=== PATIENT | female | born 1970 | race Caucasian/White ===

== ENCOUNTER 2021-03-30 15:06 | Emergency (ER) | payer BC, SELFPAY ==
--- NOTE | ~2021-03-30 | XR_ITS ---
EXAMINATION: XR chest 2V DATE: 03/30/2021 16:24 INDICATION: Shortness of breath. TECHNIQUE: Frontal and lateral views of the chest were obtained. COMPARISON: None. FINDINGS: The chest demonstrates clear lungs without pneumonia, pleural effusion, or pneumothorax. Th e heart size is normal. There are surgical clips in left breast. IMPRESSION: 1. No acute cardiopulmonary disease. Reviewed, dictated and finalized at location A.
[2021-03-30 15:03] VITALS: BP 155/73; PULSE 81; RESP 22; TEMP 36.4; O2SAT 100
--- NOTE | 2021-03-30 15:11 | ECG_ITS ---
Measurements Intervals [place] Rate: 75 P: 6 MD: 156 QRS: 14 QRSD: 100 T: 4 QT: 403 QTc: 452 Interpretive Statements SINUS RHYTHM BORDERLINE ST-T WAVE ABNORMALITY- INFERIOR LEADS BORDERLINE ECG Electronically Signed On 03-30-2021 17:15:10 CDT by Mitul Aguirre D.O.
[2021-03-30 16:01] VITALS: BP 132/62; PULSE 80; RESP 15; O2SAT 100
--- NOTE | 2021-03-30 16:14 | ED.GENADULT ---
HPI - General Adult General Chief complaint: Allergic Reaction Stated complaint: STUNG BY YELLOW JACKETS Time Seen by Provider: 03/30/21 15:59 Source: patient History of Present Illness HPI narrative: Patient is a 50 y/o female complaining of chest pain and SOB after being stung by multiple yellow jackets about 2 hours ago. She states that she was mowing the grass and there was a nest on the ground. She states that her pain was located in mid sternal area and she rate it as 7/10. There is no pain radiation. She took Benadryl, which did not help. EMS was called and she was given IM Epi by EMS. She feel better currently. She still has slight chest pain which she rates as 1/10. Related Data Allergies Allergy/AdvReac Type Severity Reaction Status Date / Time No Known Allergies Allergy Verified 03/30/21 17:29 Review of Systems Constitutional: Constitutional: Denies chills, Denies fever(s), Denies headache(s) and Denies weakness Eyes: Eyes: Denies blurry vision ENT: Denies headache(s) and Denies neck pain Cardiovascular: Cardiovascular: Reports chest pain and Reports dyspnea Respiratory: Respiratory: Denies cough and Reports dyspnea Gastrointestinal: Gastrointestinal: Denies abdominal pain, Denies diarrhea, Denies nausea and Denies vomiting Genitourinary: Genitourinary: Denies hematuria and Denies dysuria Musculoskeletal: Musculoskeletal: Denies back pain and Denies neck pain Neurologic: Denies headache(s) and Denies weakness Exam Const: General: no acute distress and well developed Orientation/consciousness: oriented to person, oriented to place, oriented to time and patient oriented x3 HENMT: Head: normocephalic Ears: external ears normal General nose exam: Normal external nose present Eyes: General: appearance normal, both eyes and all related structures Conjunctivae: conjunctivae normal Neck: Neck: normal visual inspection and full ROM Chest: Chest palpation & inspection: normal inspection of the chest and no tenderness Resp: Effort & Inspection: normal respiratory effort Auscultation: clear to auscultation bilaterally Cardio: Rate: regular rate Rhythm: regular rhythm GI: GI Palp: No abdominal tenderness and Yes Soft to palpation Skin: General skin exam: normal color, turgor normal and erythema (some area of redness on arms and trunk.) Neuro: General: oriented to person, oriented to place, oriented to time and patient oriented x3 Cognition (Neuro): normal cognition Extrem: General: normal to inspection, full ROM and no pedal edema Psych: Appearance: grossly normal Mental Status: mental status grossly normal Affect: normal affect Course Vital Signs Vital signs: Vital Signs Temperature 36.4 C 03/30/21 15:03 Pulse Rate 81 03/30/21 15:03 Respiratory Rate 22 H 03/30/21 15:03 Blood Pressure 155/73 H 03/30/21 15:03 Pulse Oximetry 100 03/30/21 15:03 Temperature 36.4 C 03/30/21 15:03 Pulse Rate 80 03/30/21 20:47 Respiratory Rate 14 03/30/21 20:47 Blood Pressure 156/82 H 03/30/21 20:47 Pulse Oximetry 98 03/30/21 20:47 Medical Decision Making Vital Signs Vital Signs: Vital Signs Temperature 36.4 C 03/30/21 15:03 Pulse Rate 81 03/30/21 15:03 Respiratory Rate 22 H 03/30/21 15:03 Blood Pressure 155/73 H 03/30/21 15:03 Pulse Oximetry 100 03/30/21 15:03 Temperature 36.4 C 03/30/21 15:03 Pulse Rate 80 03/30/21 20:47 Respiratory Rate 14 03/30/21 20:47 Blood Pressure 156/82 H 03/30/21 20:47 Pulse Oximetry 98 03/30/21 20:47 Lab Data Result diagrams: 03/30/21 16:35 03/30/21 16:35 Labs: Lab Results 03/30/21 03/30/21 03/30/21 Range/Units 16:35 16:35 19:19 WBC 11.7 H (4.5-10.0) K/mm3 RBC 4.46 (4.2-5.4) M/mm3 Hgb 11.5 L (12.0-15.0) g/dL Hct 37.0 (37.0-47.0) % MCV 83.0 (80-100) fl MCH 25.8 L (26-34) pg MCHC 31.1 L (32-36) g/dl RDW 15.2 H (11.5-14.5) % Plt C
[2021-03-30 17:01] VITALS: BP 142/81; PULSE 71; RESP 16; O2SAT 100
[2021-03-30 17:03] LABS: Basophils Percent Auto 0.2 % (0.2-1.2); Eosinophils Percent Auto 0.3 % (0-4.4); Hemoglobin 11.5 g/dL (12.0-15.0); Immature Granulocyte Absolute 0.05 K/mm3 (0.00-0.031); Immature Granulocyte Percent A 0.4 % (0-0.5); Lymphocytes Absolute Auto 0.88 K/mm3 (0.9-3.2); Lymphocytes Percent Auto 7.5 % (18.3-44.2); Mean Corpuscular HGB Conc 31.1 g/dl (32-36); Mean Corpuscular Hemoglobin 25.8 pg (26-34); Mean Platelet Volume 9.9 fl (7.4-10.4); Monocytes Absolute Auto 0.8 K/mm3 (0.1-0.6); Monocytes Percent Auto 6.9 % (2.6-8.5); Neutrophils Absolute Auto 9.9 K/mm3 (1.3-6.7); Neutrophils Percent Auto 84.7 % (45.5-73.1); Platelet Count Result 214 k/mm3 (150-375); Red Blood Count 4.46 M/mm3 (4.2-5.4); Red Cell Distribution Width 15.2 % (11.5-14.5); White Blood Count 11.7 K/mm3 (4.5-10.0)
[2021-03-30 17:09] LABS: Alanine Aminotransferase 20 U/L (4-35); Albumin Level 4.2 g/dL (3.5-5.1); Alkaline Phosphatase 59 U/L (38-126); Anion Gap 8 mmol/L (8-16); Aspartate Amino Transferase 24 U/L (14-36); Bilirubin,Total 0.4 mg/dL (0.2-1.3); Blood Urea Nitrogen 23 mg/dL (7-17); Calcium 8.7 mg/dL (8.4-10.2); Carbon Dioxide 22 mmol/L (22-30); Chloride 105 mmol/L (98-107); Estimated CRCL calculation 96 ml/min; Estimated Glomerular Filt Rate > 60; Glucose 130 mg/dL (65-110); Potassium 3.3 mmol/L (3.4-5.0); Sodium 135 mmol/L (137-145)
[2021-03-30 17:21] LABS: Troponin I < 0.012 ng/mL (0.000-0.034)
[2021-03-30] MEDS: POTASSIUM CHLORIDE 20 MEQ TABLET PO (17:37)
[2021-03-30 18:01] VITALS: BP 137/85; PULSE 74; RESP 14; O2SAT 100
[2021-03-30] MEDS: methylPREDNISolone SOD SUCC 125 MG VIAL IV PUSH (19:09)
[2021-03-30] MEDS: FAMOTIDINE 20 MG/2 ML VIAL IV PUSH (19:09)
[2021-03-30 19:31] VITALS: BP 123/64; PULSE 79; RESP 12; O2SAT 100
[2021-03-30 19:51] LABS: Troponin I < 0.012 ng/mL (0.000-0.034)
--- NOTE | 2021-03-30 20:03 | ED.GENADULT ---
HPI - General Adult General Chief complaint: Allergic Reaction Stated complaint: STUNG BY YELLOW JACKETS Time Seen by Provider: 03/30/21 15:59 Source: patient Related Data Home Medications Medication Instructions Recorded Confirmed No Home Medications 03/30/21 03/30/21 Allergies Allergy/AdvReac Type Severity Reaction Status Date / Time No Known Allergies Allergy Verified 03/30/21 17:29 Course Vital Signs Vital signs: Vital Signs Temperature 97.6 F 03/30/21 15:03 Pulse Rate 81 03/30/21 15:03 Respiratory Rate 22 H 03/30/21 15:03 Blood Pressure 155/73 H 03/30/21 15:03 Pulse Oximetry 100 03/30/21 15:03 Temperature 97.6 F 03/30/21 15:03 Pulse Rate 79 03/30/21 19:31 Respiratory Rate 12 03/30/21 19:31 Blood Pressure 123/64 03/30/21 19:31 Pulse Oximetry 100 03/30/21 19:31 Medical Decision Making Vital Signs Vital Signs: Vital Signs Temperature 97.6 F 03/30/21 15:03 Pulse Rate 81 03/30/21 15:03 Respiratory Rate 22 H 03/30/21 15:03 Blood Pressure 155/73 H 03/30/21 15:03 Pulse Oximetry 100 03/30/21 15:03 Temperature 97.6 F 03/30/21 15:03 Pulse Rate 79 03/30/21 19:31 Respiratory Rate 12 03/30/21 19:31 Blood Pressure 123/64 03/30/21 19:31 Pulse Oximetry 100 03/30/21 19:31 Lab Data Result diagrams: 03/30/21 16:35 03/30/21 16:35 Labs: Lab Results 03/30/21 03/30/21 03/30/21 Range/Units 16:35 16:35 19:19 WBC 11.7 H (4.5-10.0) K/mm3 RBC 4.46 (4.2-5.4) M/mm3 Hgb 11.5 L (12.0-15.0) g/dL Hct 37.0 (37.0-47.0) % MCV 83.0 (80-100) fl MCH 25.8 L (26-34) pg MCHC 31.1 L (32-36) g/dl RDW 15.2 H (11.5-14.5) % Plt Count 214 (150-375) k/mm3 MPV 9.9 (7.4-10.4) fl Immature Gran % (Auto) 0.4 (0-0.5) % Neut % (Auto) 84.7 H (45.5-73.1) % Lymph % (Auto) 7.5 L (18.3-44.2) % [place] % (Auto) 6.9 (2.6-8.5) % Eos % (Auto) 0.3 (0-4.4) % Baso % (Auto) 0.2 (0.2-1.2) % Lymph # (Auto) 0.88 L (0.9-3.2) K/mm3 [place] # (Auto) 0.8 H (0.1-0.6) K/mm3 Eos # (Auto) 0.0 (0-0.3) K/mm3 Baso # (Auto) 0.0 (0.0-0.1) K/mm3 Abs Immat Gran (auto) 0.05 H (0.00-0.031) K/mm3 Absolute Neuts (auto) 9.9 H (1.3-6.7) K/mm3 Absolute Nucleated RBC 0.0 (0.0-0.012) K/mm3 Nucleated RBC % 0.0 (0.0-0.2) % Sodium 135 L (137-145) mmol/L Potassium 3.3 L (3.4-5.0) mmol/L Chloride 105 (98-107) mmol/L Carbon Dioxide 22 (22-30) mmol/L Anion Gap 8 (8-16) mmol/L BUN 23 H (7-17) mg/dL Creatinine 0.70 (0.7-1.0) mg/dL Estim Creat Clear Calc 96 ml/min Estimated GFR > 60 (59 - ) Glucose 130 H (65-110) mg/dL Calcium 8.7 (8.4-10.2) mg/dL Total Bilirubin 0.4 (0.2-1.3) mg/dL AST 24 (14-36) U/L ALT 20 (4-35) U/L Alkaline Phosphatase 59 (38-126) U/L Troponin I < 0.012 < 0.012 (0.000-0.034) ng/mL Total Protein 7.0 (6.3-8.2) g/dL Albumin 4.2 (3.5-5.1) g/dL Discharge Plan Discharge Clinical Impression: Bee sting reaction Qualifiers: Encounter type: initial encounter Injury intent: accidental or unintentional Qualified Code(s): T63.441A - Toxic effect of venom of bees, accidental (unintentional), initial encounter Chest pain Qualifiers: Chest pain type: unspecified Qualified Code(s): R07.9 - Chest pain, unspecified Patient Disposition: Home, Self-Care Condition: Stable Instructions: Chest Pain (ED), Insect Bite or Sting (ED) Prescriptions: No Action No Home Medications RF: 0 Follow-up/Referrals: UNKNOWN,DOCTOR [Primary Care Provider] -
[2021-03-30 20:47] VITALS: BP 156/82; PULSE 80; RESP 14; O2SAT 98
== END 2021-03-30 20:50 | disposition home or self-care (01) ==
PROVIDERS: Emergency Provider Emergency Medicine
DX: T63.441A Toxic effect of venom of bees, accidental (unintentional), initial encounter (principal); R07.9 Chest pain, unspecified
CPT/HCPCS: 36415; 71046; 80053; 84484; 85025; 93005; 96374; 96375; 99284; A9270; J2930

== ENCOUNTER 2022-01-08 04:32 | Day surgery (SDC) | payer BC, SELFPAY ==
[2021-11-09 15:42] VITALS: BMI 32.8
[2021-12-22 13:38] VITALS: BMI 32.8
--- NOTE | 2021-12-22 13:42 | PC.NURSE ---
PAT call complete. Pt states no changes since last PAT call done on 11-09-21. Questions answered.
[2022-01-08 08:18] VITALS: BP 165/96; PULSE 80; RESP 20; TEMP 37.1; O2SAT 100
[2022-01-08] MEDS: LACTATED RINGERS 1,000 ML 150 ML IV CONT (08:29)
--- NOTE | 2022-01-08 08:38 | WPDANESEPPF ---
Anes - Initial Pre Proc Eval Procedure: Operation Date: 01/08/22 09:30 Proposed Procedures p Screening Colonoscopy - Hubert Dick MD Date/Time: 01/08/22 08:38 Surgeon: Hubert Dick MD Pre Op Diagnosis: neoplasm screening Patient Data Age: 51 Gender: F Height: 1.6 m Weight: 95 kg Last Vital Signs Temp 37.1 C 01/08/22 08:18 Pulse 80 01/08/22 08:18 Resp 20 01/08/22 08:18 BP 165/96 H 01/08/22 08:18 Pulse Ox 100 01/08/22 08:18 O2 Del Method Room Air 01/08/22 08:18 Allergies Allergy/AdvReac Type Severity Reaction Status Date / Time No Known Allergies Allergy Verified 01/08/22 08:17 Home Medications Medication Instructions Recorded Confirmed Type furosemide 20 mg tablet 20 mg PO DAILY PRN Edema 11/09/21 12/22/21 History ibuprofen 200 mg tablet (Advil) 200 mg PO Q6H PRN Pain 11/09/21 12/22/21 History latanoprost 0.005 % eye drops 1 drp EACH EYE DAILY 11/09/21 12/22/21 History ferrous sulfate 325 mg (65 mg 325 mg PO DAILY 12/17/21 12/22/21 History iron) tablet Patient hx anesthesia problems: none Family hx anesthesia problems: none Results Review: All pre-operative results and documents have been reviewed as part of the pre-operative evaluation. [facility] Past Medical History Medical History (Updated 12/17/21 @ 10:26 by Bryce Hitchcock MD) Breast cancer History of hypertension Surgical History Surgical History (Updated 12/17/21 @ 09:44 by ANDREW Ramirez) Delivery by section 01/08/1985 / 04/18/1987 H/O tubal ligation (~07/25/11) History of lumpectomy of left breast (09/04/11) invasive ductal carcinoma S/P lumpectomy, right breast x 2 Family History Family History (Updated 12/17/21 @ 09:42 by ANDREW Ramirez) Mother Heart disease Multiple myeloma Father Bladder cancer Diabetes mellitus Social History Social History (Updated 12/17/21 @ 09:43 by ANDREW Ramirez) Smoking status: Former smoker Tobacco type: cigarettes Alcohol intake: current Drinks per week: 3 Substance use: never Substance use type: does not use Living arrangements: with family Additional living arrangements comments: 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: 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[employer]) Gender identity (if verbalized by the patient): Female Sexual Orientation (if Verbalized by the Patient): Straight or Heterosexual Spiritual care concerns: No Anes - Eval Final PreProcedure Day of Procedure 01/08/22 08:38 Patient weight: obese Heart: regular rate and rhythm Lungs: clear to auscultation and normal air movement Airway: Mallampati scale class II Neurological: alert and oriented Last oral intake: >/= 8 hours ASA classification: III Emergent: no Anesthetic plan: proceed Anesthesia type and monitoring: general GIVS Results Review: All pre-operative results and documents have been reviewed as part of the pre-operative evaluation. Informed Consent: The patient's anesthetic plan and its attendant risks and benefits were discussed with the patient/family/POA. Questions were solicited and answers provided to the satisfaction of the patient/family/POA.
--- NOTE | 2022-01-08 09:21 | PM.HPGS ---
History of Present Illness History of Present Illness Consent: Risks, benefits, and alternatives have been discussed and questions answered. Patient agrees to proceed with procedure. Chief complaint: neoplasm screening Narrative: Charo Mccord is a 51 year old female Referred for colon cancer screening. This is her 1st colonoscopy. Review of Systems Review of Systems: All systems reviewed & are unremarkable except as noted in HPI and below PMFSH Past Medical History Medical History Breast cancer History of hypertension Surgical History Surgical History Delivery by section 01/08/1985 / 04/18/1987 H/O tubal ligation (~07/25/11) History of lumpectomy of left breast (09/04/11) invasive ductal carcinoma S/P lumpectomy, right breast x 2 Family History Family History Mother Heart disease Multiple myeloma Father Bladder cancer Diabetes mellitus Social History Social History Smoking status: Former smoker Tobacco type: cigarettes Alcohol intake: current Drinks per week: 3 Substance use: never Substance use type: does not use Living arrangements: with family Additional living arrangements comments: 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: 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[employer]) Gender identity (if verbalized by the patient): Female Sexual Orientation (if Verbalized by the Patient): Straight or Heterosexual Spiritual care concerns: No Meds Home Medications and Allergies Home Medications Medication Instructions Recorded Confirmed Type furosemide 20 mg tablet 20 mg PO DAILY PRN Edema 11/09/21 12/22/21 History ibuprofen 200 mg tablet (Advil) 200 mg PO Q6H PRN Pain 11/09/21 12/22/21 History latanoprost 0.005 % eye drops 1 drp EACH EYE DAILY 11/09/21 12/22/21 History ferrous sulfate 325 mg (65 mg 325 mg PO DAILY 12/17/21 12/22/21 History iron) tablet Allergies Allergy/AdvReac Type Severity Reaction Status Date / Time No Known Allergies Allergy Verified 01/08/22 08:17 Vital Signs Vital Signs - 24 hr 01/08/22 08:18 Temperature 37.1 C Pulse Rate 80 Respiratory Rate 20 Blood Pressure 165/96 H Pulse Oximetry 100 Oxygen Delivery Room Air Exam Resp: Auscultation: clear to auscultation bilaterally Cardio: Rate: regular rate Rhythm: regular rhythm GI: GI Palp: Yes Soft to palpation and No Tenderness to palpation present (GI) Assessment and Plan Assessment and plan (1) Colon cancer screening: Code(s): Z12.11 - Encounter for screening for malignant neoplasm of colon Status: Acute Assessment and Plan: Colonoscopy with possible biopsy or polypectomy or cautery or injection of substances.
[2022-01-08 09:50] VITALS: BP 139/86; PULSE 68; RESP 20; O2SAT 99
[2022-01-08 10:00] VITALS: BP 128/79; PULSE 65; RESP 17; O2SAT 100
[2022-01-08 10:10] VITALS: BP 146/91; PULSE 60; RESP 22; O2SAT 100
== END 2022-01-08 10:18 | disposition home or self-care (01) ==
PROVIDERS: PCP Internal Medicine; Visit Provider Internal Medicine Gastroenterology
PROC: 0DJD8ZZ Inspection of Lower Intestinal Tract, Via Natural or Artificial Opening Endoscopic (ICD-10-PCS; CPT 45378; principal; 2022-01-08 09:30)
DX: Z12.11 Encounter for screening for malignant neoplasm of colon (principal); K57.30 Diverticulosis of large intestine without perforation or abscess without bleeding; I10 Essential (primary) hypertension; Z85.3 Personal history of malignant neoplasm of breast; Z87.891 Personal history of nicotine dependence; E66.9 Obesity, unspecified; Z68.37 Body mass index [BMI] 37.0-37.9, adult
CPT/HCPCS: 45378; J2704; J7120

== ENCOUNTER 2022-04-12 11:12 | Outpatient (CLI) | payer BC, SELFPAY ==
[2022-04-12 11:45] LABS: Anion Gap 12 mmol/L (8-16); Blood Urea Nitrogen 16 mg/dL (7-17); Carbon Dioxide 27 mmol/L (22-30); Chloride 100 mmol/L (98-107); Estimated Glomerular Filt Rate > 60; Glucose 117 mg/dL (65-110); Potassium 4.3 mmol/L (3.4-5.0); Sodium 139 mmol/L (137-145)
== END 2022-04-12 11:13 | disposition home or self-care (01) ==
LOC: ANHSURGERY 11:15
PROVIDERS: Anesthesiology; PCP Internal Medicine; Visit Provider Obstetrics & Gynecology
DX: Z01.818 Encounter for other preprocedural examination (principal); T50.2X5A Adverse effect of carbonic-anhydrase inhibitors, benzothiadiazides and other diuretics, initial encounter
CPT/HCPCS: 36415; 80048

== ENCOUNTER 2022-04-15 00:30 | Day surgery (SDC) | payer BC, SELFPAY ==
[2022-04-08 10:44] VITALS: BMI 35.4
--- NOTE | 2022-04-08 11:06 | PC.NURSE ---
Report to the Outpatient Waiting Room, entrance under the green pavilion located off [facility], at 0730 on 04-15-22. OR Time: 0930. Time changes happen often and if your time is changed the preop area will call you the afternoon before. - You and your visitor will be asked to self-screen and do not enter if you have any COVID symptoms. - Only one visitor and NO children visitors are allowed at this time. - The patient visitor is requested to leave or wait in car when not with patient due to restrictions. - A mask is required within the hospital. Patients may have clear liquids (water, carbonated beverages, clear teas, apple juice) until 3 hours prior to surgery with a maximum of 20 ounces. 0630 - No food from midnight until time of surgery - Infants may have breast milk until 4 hours before surgery, formula 6 hours prior to surgery. - Children will be allowed to drink immediately following surgery. If applicable, please bring a bottle or sippy cup to assist with drinking. Juice, water, soda, and popsicles are readily available. For infants on formula, please bring formula the day of surgery. Pacifiers are allowed. Take the following medications with a SIP of water the morning of surgery: None Medications to discontinue per physician: Vitamins and supplements Date to take last dose: 04-12-22 Please no make-up, nail qatari, hairspray, perfume, deodorant, or body powder the day of surgery. No jewelry (including any body piercings) or valuables the day of surgery, leave them at home. Please take a shower or bath the night before, or the morning of, surgery with an antibacterial soap. Wear comfortable, loose fitting clothing. Children are encouraged to wear pajamas. - Jewelry must be removed prior to entering the operating room. Rings and piercings that are not removed may be cut off. - The hospital will not accept responsibility for valuables. - Please leave all valuables, including medications, at home the day of surgery. If you are going home after surgery, a licensed special education bus driver must drive you home. - NO public transportation without another adult. - We recommend that an adult stay with you for 24 hours following discharge. - We also recommend that you do not drive, make important decision, drink alcoholic beverages, or take any drugs that were not prescribed by your health care provider for at least 24 hours after your discharge time. For Pediatric surgeries, we recommend two adults accompany the child home (only one inside the building at this time). Follow any additional instructions given to you from your surgeon. If you or anyone in your household have experienced Covid symptoms in the past week, please notify your surgeon or the nurse liaison at the phone number below for possible testing. Telephone instructions given to Amber Mccord and asked if any additional questions and then verbalized understanding. Patient advised to call surgeon office or pre surgery nurse liaison [phone] if any additional questions.
--- NOTE | 2022-04-14 16:23 | PM.IMHP ---
H&P: HPI History of Present Illness Date/Time: 04/14/22 16:23 52-year-old 4 para 3013 female presents for evaluation treatment of heavy irregular vaginal bleeding. States her cycle lasting 7 days with 3-5 days very heavy clotting prepping and significant amount of discomfort. Ultrasound shows mildly enlarged uterus with thickened endometrial cavity. Of significance she is greater than 10 years out from breast cancer for which she took tamoxifen for 5 years. Had no issues during that time, this has been a recent issue over the past couple of years. Chief Complaint: Menometrorrhagia PMFSH Past Medical History Medical History Breast cancer History of hypertension Surgical History Surgical History Delivery by section 01/08/1985 / 04/18/1987 H/O tubal ligation (~07/25/11) History of lumpectomy of left breast (09/04/11) invasive ductal carcinoma S/P lumpectomy, right breast x 2 Family History Family History Mother Heart disease Multiple myeloma Father Bladder cancer Diabetes mellitus Social History Social History Years smoked: 15 Smoking status: Former smoker Tobacco type: cigarettes Second hand tobacco smoke exposure: No Smoking end date: 07/25/11 Alcohol intake: current Drinks per week: 3 Alcohol use details: socially Substance use: never Substance use type: does not use Additional living arrangements comments: 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[employer]) Gender identity (if verbalized by the patient): Female Sexual Orientation (if Verbalized by the Patient): Straight or Heterosexual Spiritual care concerns: No Meds Home Medications and Allergies Home Medications Medication Instructions Recorded Confirmed Type furosemide 20 mg tablet 20 mg PO DAILY PRN Edema 11/09/21 04/08/22 History latanoprost 0.005 % eye drops 1 drp EACH EYE DAILY 11/09/21 04/08/22 History ascorbic acid (vitamin C) 1 g PO DAILY 04/08/22 04/08/22 History Allergies Allergy/AdvReac Type Severity Reaction Status Date / Time No Known Allergies Allergy Verified 04/08/22 10:40 Exam Const: General: cooperative, healthy appearing and comfortable Resp: Effort & Inspection: normal respiratory effort Auscultation: clear to auscultation bilaterally Cardio: Rate: regular rate Rhythm: regular rhythm GI: Inspection: normal to inspection Auscultation: normal bowel sounds : External Female Exam: normal external appearance Speculum Exam - Vagina: normal appearance of the vagina Speculum Exam - Cervix: normal appearance of the cervix Bimanual exam- vagina & uterus: enlarged ( 10 12 week size) Bimanual Exam- Adnexa, other: normal adnexae Assessment and Plan Assessment and plan (1) Endometrial thickening on ultrasound: Code(s): R93.89 - Abnormal findings on diagnostic imaging of other specified body structures Status: Acute (2) Menometrorrhagia: Code(s): N92.1 - Excessive and frequent menstruation with irregular cycle Status: Acute (3) Enlarged uterus: Code(s): N85.2 - Hypertrophy of uterus Status: Acute Plan proceed with hysteroscopy uterine curettings and endometrial ablation.
--- NOTE | 2022-04-15 07:48 | P.PNAN_ITS ---
Anes - Initial Pre Proc Eval Procedure: Operation Date: 04/15/22 09:30 Proposed Procedures p Hysteroscopy Dilation and Curettage, [place] Endometrial Ablation - Bryce Hitchcock MD Date/Time: 04/15/22 07:48 Surgeon: Bryce Hitchcock MD Pre Op Diagnosis: Menometrorrhagia Patient Data Age: 52 Gender: F Height: 1.6 m Weight: 90.72 kg Allergies Allergy/AdvReac Type Severity Reaction Status Date / Time No Known Allergies Allergy Verified 04/08/22 10:40 Home Medications Medication Instructions Recorded Confirmed Type furosemide 20 mg tablet 20 mg PO DAILY PRN Edema 11/09/21 04/08/22 History latanoprost 0.005 % eye drops 1 drp EACH EYE DAILY 11/09/21 04/08/22 History ascorbic acid (vitamin C) 1 g PO DAILY 04/08/22 04/08/22 History Patient hx anesthesia problems: none Family hx anesthesia problems: none Results Review: All pre-operative results and documents have been reviewed as part of the pre- operative evaluation. [facility] Past Medical History Medical History Breast cancer History of hypertension Surgical History Surgical History Delivery by section 01/08/1985 / 04/18/1987 H/O tubal ligation (~07/25/11) History of lumpectomy of left breast (09/04/11) invasive ductal carcinoma S/P lumpectomy, right breast x 2 Family History Family History Mother Heart disease Multiple myeloma Father Bladder cancer Diabetes mellitus Social History Social History Years smoked: 15 Smoking status: Former smoker Tobacco type: cigarettes Second hand tobacco smoke exposure: No Smoking end date: 07/25/11 Alcohol intake: current Drinks per week: 3 Alcohol use details: socially Substance use: never Substance use type: does not use Living arrangements: with family Additional living arrangements comments: 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[employer]) Gender identity (if verbalized by the patient): Female Sexual Orientation (if Verbalized by the Patient): Straight or Heterosexual Spiritual care concerns: No Anes - Eval Final PreProcedure Day of Procedure 04/15/22 07:48 Patient weight: obese Heart: regular rate and rhythm Lungs: clear to auscultation Airway: Mallampati scale class II Neurological: alert and oriented Last oral intake: >/= 8 hours ASA classification: III Emergent: no Anesthetic plan: proceed Anesthesia type and monitoring: general GIVS and standard monitoring Results Review: All pre-operative results and documents have been reviewed as part of the pre- operative evaluation. Informed Consent: The patient's anesthetic plan and its attendant risks and benefits were discussed with the patient/family/POA. Questions were solicited and answers provided to the satisfaction of the patient/family/POA.
[2022-04-15 08:11] VITALS: BP 146/86; PULSE 71; RESP 16; TEMP 37.1; O2SAT 98
[2022-04-15] MEDS: LACTATED RINGERS 1,000 ML 30 ML IV CONT (08:17)
[2022-04-15] MEDS: ACETAMINOPHEN 500 MG TABLET 1000 MG PO (08:25)
--- NOTE | 2022-04-15 08:52 | WPDHPUPDATE1 ---
History and Physical Update Update Date/Time: 04/15/22 08:52 History and Physical has been reviewed, including an updated exam of the patient. There are NO changes in the patient's condition. Risks, benefits, and alternatives have been discussed and questions answered. Patient agrees to proceed with procedure.
[2022-04-15] MEDS: ceFAZolin 2 GM/D5W 50 ML 2 GM/50 ML BAG IVPB (09:31)
[2022-04-15 10:06] VITALS: BP 164/89; PULSE 81; RESP 15; O2SAT 98
[2022-04-15 10:30] VITALS: BP 172/95; PULSE 67; RESP 20
--- NOTE | 2022-04-15 10:39 | SUR.PHASEII ---
1039 - dr. sneed aware on pt's b/p 189/99 hr 63. pt denies pain and discomfort. pt states that she feels fine. no orders received. pt states that she has a blood pressure cuff that she will use at home to check blood pressures.
--- NOTE | 2022-04-15 10:50 | W.PM.PROC2 ---
Procedure Note - Detailed Date of Procedure 04/15/22 Pre-op Diagnosis Menometrorrhagia Post-op Diagnosis Same Procedure Performed 1. Hysteroscopy with uterine curettings 2. Endometrial ablation Surgeon Bryce Hitchcock MD Anesthesia MAC Findings Minimally thickened endometrial tissue Description of Procedure Patient prepped draped usual manner this procedure. Cervix was dilated to allow the hysteroscope to be placed which did reveal slightly thickened tissue no hypervascularity polyps or fibroids were appreciated. Curettings were obtained with a moderate amount of tissue removed. Endometrial instrument was then placed cavity assessment were performed and the instrument was activated. At the end of the cycle hysteroscopic exam revealed good destruction throughout. Patient with then sent to the cover room in stable condition. Estimated Blood Loss 20 Drains No Packing No Pathology Yes Complications No immediate complications Condition Stable Disposition PACU [facility] Billing Surgery - Charge Forward: Surgery Billing
[2022-04-15 11:00] VITALS: BP 168/89; PULSE 58; RESP 20
== END 2022-04-15 11:15 | disposition home or self-care (01) ==
PROVIDERS: PCP Internal Medicine; Visit Provider Obstetrics & Gynecology
PROC: 0U5B8ZZ Destruction of Endometrium, Via Natural or Artificial Opening Endoscopic (ICD-10-PCS; CPT 58563; principal; 2022-04-15 09:30)
DX: N92.1 Excessive and frequent menstruation with irregular cycle (principal); I10 Essential (primary) hypertension; Z85.3 Personal history of malignant neoplasm of breast; Z87.891 Personal history of nicotine dependence; E66.9 Obesity, unspecified; Z68.37 Body mass index [BMI] 37.0-37.9, adult
CPT/HCPCS: 58563; 88305; A9270; J0690; J2250; J2405; J2704; J3010; J7030; J7120

== ENCOUNTER 2024-03-30 07:29 | Outpatient (CLI) | payer BC, SELFPAY ==
--- NOTE | ~2024-03-30 | MR_ITS ---
MRI of the lumbar spine Clinical History: Lumbar disc syndrome Technique: Axial T2-weighted images, and sagittal T1-weighted, T2-weighted, and T2 fat-sat images wer e acquired. Findings: There is no fracture or subluxation of the lumbar spine. Vertebral bodies maintain normal h eight and alignment. No suspicious bone marrow signal abnormality seen. At L1-L2, there is no disc bulge or herniation. There is moderate facet arthropathy. No central canal stenosis or neural foraminal narrowing. At L2-L3, there is no disc bulge or herniation. There is moderate facet joint hypertrophy. No central canal stenosis or neural foraminal narrowing. L3-L4, there is no disc bulge or herniation. There is moderate facet arthropathy. No central canal st enosis or neural foraminal narrowing. At L4-L5, there is moderate degenerative disc narrowing. There is minimal disc bulge with severe face t arthropathy. No kelsi central canal stenosis. There is moderate to severe left neural foraminal omar rowing, and mild to moderate right neural foraminal narrowing. L5-S1, there is moderate degenerative disc narrowing. There is minimal disc bulge with advanced facet arthropathy. No central canal stenosis or neural foraminal narrowing. Paravertebral soft tissues are unremarkable. Impression: Moderate degenerative spondylosis at L4-L5, as detailed above. Additional mild degenerative changes, as above. Reviewed, dictated and finalized at [facility]. Impression: Moderate degenerative spondylosis at L4-L5, as detailed above. Additional mild degenerative changes, as above.
== END 2024-03-30 07:30 | disposition home or self-care (01) ==
LOC: MICIMG 07:31
PROVIDERS: PCP Internal Medicine
DX: M51.26 Other intervertebral disc displacement, lumbar region (principal); M47.896 Other spondylosis, lumbar region; M47.897 Other spondylosis, lumbosacral region
CPT/HCPCS: 72148